=== PATIENT | male | born 1985 | race Caucasian/White ===

== ENCOUNTER 2022-12-03 09:38 | Emergency (ER) | payer MEDICAID, SELFPAY ==
--- NOTE | ~2022-12-03 | XR_ITS ---
Right ankle Technique: AP, oblique, and lateral views were obtained. Clinical History: Pain and swelling Findings: There is a comminuted, nondisplaced fracture involving the predominantly central portion of the calcaneal body. Suspected intra-articular extension at the posterior subtalar facet. Ankle morti se and other visualized joint spaces are preserved. Lateral soft tissue swelling noted. Impression: Comminuted, minimally displaced fracture of the calcaneus, with probable intra-articular extension at the posterior subtalar facet. Lateral soft tissue swelling. Reviewed, dictated and finalized at location . Impression: Comminuted, minimally displaced fracture of the calcaneus, with probable intra- articular extension at the posterior subtalar facet. Lateral soft tissue swelling.
--- NOTE | ~2022-12-03 | XR_ITS ---
Right foot and heel Technique: AP, oblique, and lateral views of the foot were obtained. Lateral and Tyson views of the calcaneus were performed. Clinical History: Pain Findings: There is a comminuted, minimally displaced fracture of the central calcaneal body, with pro bable intra-articular extension at the posterior subtalar facet. No other fracture or dislocation see n. Joint spaces are preserved without erosive or degenerative change. Soft tissues are unremarkable. Impression: Comminuted, mildly displaced fracture of the calcaneus, predominantly involving the central calcaneal body, with probable intra-articular extension at the posterior subtalar facet. Reviewed, dictated and finalized at location M. Impression: Comminuted, mildly displaced fracture of the calcaneus, predominantly involving the central calcaneal body, with probable intra-articular extension at the pos terior subtalar facet. Impression: Comminuted, mildly displaced fracture of the calcaneus, predominantly involving the central calcaneal body, with probable intra-articular extension at the pos terior subtalar facet.
--- NOTE | ~2022-12-03 | XR_ITS ---
XR tibia fibula LT 2V DATE: 12/03/2022 11:32 INDICATION: Fell off of ladder. Anterior lower left leg pain TECHNIQUE: AP and lateral views of tibia and fibula COMPARISON: None FINDINGS: No fracture or dislocation, periosteal reaction or bone destruction. Normal alignment at th e knee and ankle joints. IMPRESSION: Negative Reviewed, dictated and finalized at location L. IMPRESSION: Negative
[2022-12-03 09:49] VITALS: BP 158/89; PULSE 87; RESP 18; TEMP 36.6; O2SAT 99
--- NOTE | 2022-12-03 10:23 | PC.NURSE ---
Ice pack to right ankle
--- NOTE | 2022-12-03 10:55 | ED.LOWEXIN ---
HPI - Extremity Injury (Lower) General Chief Complaint: Extremity Injury, Lower <EMILY Nina Last Filed: 12/03/22 13:30> Stated Complaint: right ankle injury <EMILY Nina Last Filed: 12/03/22 13:30> Time Seen by Provider: 12/03/22 10:03 <EMILY Nina Last Filed: 12/03/22 13:30> Source: patient <EMILY Nina Last Filed: 12/03/22 13:30> Mode of arrival: ambulatory <EMILY Nina Filed: 12/03/22 13:30> Limitations: no limitations <EMILY Nina Last Filed: 12/03/22 13:30> History of Present Illness HPI Narrative: Patient is a 37 y/o male who presents to the ED with c/o R ankle pain. Patient reports he was up on an 8 foot ladder today and was about to fall off the ladder. To avoid falling, he jumped off the ladder and landed on his feet before rolling on the ground. He feels the majority of his weight landed on his right foot. He complains of severe pain to his right foot and ankle. He was unable to ambulate afterwards. Since being in the ED, he also reports having pain in his left landin. Denies pain in his left ankle/foot/heel. He did not hit his head or lose consciousness. He denies any neck or back pain. No numbness or tingling. He is not on any blood thinners. <EMILY Nina Last Filed: 12/03/22 13:30> Related Data Allergies/Adverse Reactions: Allergies Allergy/AdvReac Type Severity Reaction Status Date / Time Sulfa (Sulfonamide Allergy Mild Verified 04/21/09 16:13 Antibiotics) <EMILY Nina Last Filed: 12/03/22 13:30> Review of Systems Review of Systems: CONSTITUTIONAL: Denies fever, chills, or sweats. EYES: Denies visual changes. CARDIOVASCULAR: Denies chest pain. RESPIRATORY: Denies dyspnea. GASTROINTESTINAL: Denies abdominal pain, nausea, vomiting. MUSCULOSKELETAL: See HPI. NEUROLOGIC: See HPI. <Mariela Fonseca PA-C - Last Filed: 12/03/22 13:30> All systems reviewed & are unremarkable except as noted in HPI and below <Mariela Fonseca PA-C - Last Filed: 12/03/22 13:30> Exam Narrative: GENERAL: Well appearing, well-nourished, non-toxic, in no acute distress. HEAD: Normocephalic, atraumatic. NECK: Supple. No adenopathy, no masses. No midline cervical spinal tenderness. RESPIRATORY: Airway patent, respirations nonlabored. Clear to auscultation bilaterally, no rales, rhonchi, wheezing. CARDIOVASCULAR: Regular rate and rhythm without murmurs, rubs, or gallops. Pedal pulses 2+ and equal bilaterally. ABDOMINAL: Soft, nontender, nondistended, no hepatosplenomegaly. Normoactive BS. MUSCULOSKELETAL: No midline lumbar or thoracic spinal tenderness. Severe tenderness to palpation diffusely throughout right ankle joint/anterior right foot/right heel, moderate swelling and ecchymosis present. Limited range of motion of right ankle joint due to pain. Mild tenderness palpation over anterior mid to lower left landin, no bruising or swelling noted at this time. Sensation intact to lower extremities. Good capillary refill. Able to wiggle toes. SKIN: Warm, dry, normal color. No rashes. NEURO: A&O X3. Speech clear. Cranial nerves II-XII grossly intact. No ataxic movements. PSYCHIATRIC: Appropriate mood and affect. Normal interaction. <Mariela Fonseca PA-C - Last Filed: 12/03/22 13:30> Course DETECTIVE HOMICIDE SQU[facility]/PA Physician Supervision I agree with midlevel documentation; I performed the medical decision making component of this evaluation. Pt w/ calcaneal fx transferred to higher level of care. <Kaitlyn Fermin MD - Last Filed: 12/03/22 17:35> Vital Signs Vital signs: Vital Signs Temperature 97.9 F 12/03/22 09:49 Pulse Rate 87 12/03/22 09:49 Respiratory Rate 18 12/03/22 09:49 Blood Pressure 158/89 H 12/03/22 09:49 Pulse Oximetry 99 12/03/22 09:49 Oxygen Delivery Room Air 12/03/22 09:49 Temperature 97.9
[2022-12-03] MEDS: ONDANSETRON INJ 4 MG/2 ML VIAL IV PUSH (11:58)
[2022-12-03] MEDS: HYDROmorphone HCL INJ (*CRX) 1 MG/ML SYR IV PUSH (12:04)
[2022-12-03 12:14] VITALS: BP 120/77; PULSE 88; RESP 16; O2SAT 100
== END 2022-12-03 12:31 | disposition short-term general hospital (02) ==
PROVIDERS: Emergency Provider Physician Assistant
DX: S92.011A Displaced fracture of body of right calcaneus, initial encounter for closed fracture (principal); W17.89XA Other fall from one level to another, initial encounter
CPT/HCPCS: 29515; 73590; 73610; 73630; 73650; 96374; 96375; 99284; J1170; J2405